=== PATIENT | male | born 1980 | race Caucasian/White ===

== ENCOUNTER 2022-04-22 18:16 | Emergency (ER) | payer MEDICAID, SELFPAY ==
[2022-04-22] VITALS (11 sets, daily range): BP systolic 113–129; BP diastolic 65–76; PULSE 50–63; RESP 16–22; TEMP 36.7; O2SAT 97–100; BMI 26.4
--- NOTE | 2022-04-22 18:38 | XRR_ITS ---
PROCEDURE INFORMATION: Exam: XR Left Tibia and Fibula Exam date and time: 04/22/2022 6:42 PM Age: 42 years old Clinical indication: Injury or trauma; Fall; Blunt trauma; Lower leg; Left; Additional info: Fall, injury TECHNIQUE: Imaging protocol: XR Left tibia and fibula. Views: 2 views. COMPARISON: No relevant prior studies available. FINDINGS: Bones/joints: There is a partially visible comminuted displaced fracture involving distal fibula which is incompletely assessed. Soft tissues: Unremarkable radiographically. XR/XR tibia fibula LT 2V 21912 IMPRESSION: 1. Left distal fibular fracture. Incomplete assessment. Correlate with dedicated ankle radiographs. 2. Proximal tibia and fibula are normal.
--- NOTE | 2022-04-22 18:38 | XRR_ITS ---
PROCEDURE INFORMATION: Exam: XR Left Foot Exam date and time: 04/22/2022 7:42 PM Age: 42 years old Clinical indication: Injury or trauma; Fall; Blunt trauma; Foot; Left; Additional info: Fall, injry TECHNIQUE: Imaging protocol: XR Left foot. Views: 3 or more views. COMPARISON: CR (LOW EXM, ) 04/22/2022 7:37 PM FINDINGS: Tubes, catheters and devices: Placement of splint. Bones/joints: No fractures in the foot. Ankle fractures including tibia and fibular fractures are redemonstrated but not well characterized on the views provided. Soft tissues: Diffuse soft tissue swelling. XR/XR foot LT min 3V* [id number] IMPRESSION: 1. Left foot is unremarkable. 2. Redemonstration of left tibia and fibular fractures of ankle.
--- NOTE | 2022-04-22 18:38 | XRR_ITS ---
PROCEDURE INFORMATION: Exam: XR Left Ankle Exam date and time: 04/22/2022 6:42 PM Age: 42 years old Clinical indication: Injury or trauma; Fall; Blunt trauma; Ankle; Left; Additional info: Deformity, fall TECHNIQUE: Imaging protocol: XR Left ankle. Views: 3 or more views. COMPARISON: No relevant prior studies available. FINDINGS: Bones/joints: Focally comminuted and displaced fracture fragments of the distal fibula diaphysis. Moderate valgus angulation deformity. Additionally, anterior apex angulation deformity. Severely displaced posterior malleolus fracture of the distal tibia. Disruption of tibia-fibular syndesmosis. Disruption of ankle mortise with anterior dislocation of the tibia relative to the talus. Ankle mortise also widened with medial tibial translation. Soft tissues: Diffuse ankle region swelling. XR/XR ankle LT min 3V* [id number] IMPRESSION: Fracture dislocation injuries of the left ankle.
--- NOTE | 2022-04-22 18:38 | ED_ITS ---
HPI - Extremity Injury (Lower) General: Chief Complaint: Extremity Injury, Lower Stated Complaint: Left leg twisted/broken Time Seen by Provider: 04/22/22 18:26 History of Present Illness: Mr. Freed is a 42-year-old gentleman without significant past medical history presents to the emergency department due to ankle injury. He was playing football and was tackled and his ankle got caught under from him. He immediately had 10 out of 10 pain and was unable to ambulate. Notes associated nausea likely secondary to pain. Denies prior orthopedic injury to this ankle. No other specific changes in health, exacerbating, or alleviating factors identified. Onset (ago): minute(s) Injury: Left: ankle Severity: severe Exacerbating factors: movement and palpation Associated symptoms: Reports inability to bear weight and swelling Review of Systems General: Reports: 10 or more systems reviewed and unremarkable except in HPI and below PFSH ED PFSH: Medical History Mandible fracture No significant past medical history Social History Smoking and tobacco status: never smoked Additional social history: History of chewing tobacco use Physical Exam Const: COMMON NORMALS: alert GENERAL APPEARANCE: cooperative, well develo ped and in distress (Pain) HENMT: COMMON NORMALS: normocephalic and atraumatic HEAD & SCALP: normocephalic and atraumatic Eye: COMMON NORMALS: conjunctivae normal CONJUNCTIVA: Yes conjunctivae normal SCLERA: sclerae normal Neck/C-Spine: COMMON NORMALS: supple GENERAL: Yes trachea midline Resp: COMMON NORMALS: normal respiratory effort EFFORT & INSPECTION: Yes able to speak in complete sentences Cardio: COMMON NORMALS: regular rate and regular rhythm RATE: regular rate RHYTHM: regular rhythm GI: COMMON NORMALS: Soft to palpation PALPATION: Yes Soft to palpation and No Tenderness to palpation present (GI) Extremity: NARRATIVE EXTREMITY EXAM: Obvious dislocation with deformity to left ankle with external rotation of foot compared to normal position. CMS intact. GENERAL: Yes normal exam except as noted and No edema Neuro: COMMON NORMALS: moves all extremities SENSORIUM/ORIENTATION: Yes alert and No Orientation impaired Psych: COMMON NORMALS: mental status grossly normal and Normal thought process present THOUGHT PROCESS: Normal thought process present Skin: NARRATIVE SKIN EXAM: Scattered abrasions, patient declines Tdap update Procedures Orthopedic Fracture Reduction Fracture #1: Time Out Performed: Yes Side: left Fracture Reduction Location: tibia and fibula Analgesia: procedural sedation Technique: direct manipulation and traction/counter-traction Post Reduction X-rays Demonstrate: acceptable reduction Post-reduction neuro exam: intact Post-reduction vascular exam: intact Splint Applied: Yes Patient Tolerated Procedure: well Orthopedic Joint Reduction Joint #1: Time Out Performed: Yes Side: left Joint Reduction Location: ankle Analgesia: procedural sedation Technique used: traction/counter-traction and direct manipulation Post-reduction neuro exam: intact Post-reduction vascular: intact Post Reduction X-Ray Obtained: Yes Post Reduction X-Ray Results: reduced Splint Applied: Yes Patient Tolerated Procedure: well Procedural Sedation Preparation: monitoring coordinator applied, pulse oximeter, supplemental O2 applied, suction/airway equipment at bedside and IV secured IV Propofol dose (mg): 130 Patient Tolerated Procedure: well Complications: none Course ED course: - Patient was seen and evaluated by me at bedside - Patient placed on cardiac monitors, IV access obtained - Initial evaluation notable for exam as above. - xrays personally interpreted by me - Analgesia given - Imaging notable for trimalleolar fracture with dislocation - Patient consented for procedural sedation and closed reduction. Tolerated procedure well and fully recovered with adequate analgesia prior to discharge. - Upon serial reexamination after treatment the patient was significantly improved - Based on patient history, evaluation, and testing as interpreted the most likely cause of the patient's condition is trimalleolar fracture with dislocation - The results of ED evaluation were discussed with the patient including prescriptions and/or symptomatic cares (if applicable) including appropriate and responsible use, followup plan, and return precautions. The patient verbalized understanding and felt safe for discharge. - Patient discharged in satisfactory condition. Note: Click bubbles or prepopulated bright in note writing are used for assistance with data collection and billing and are inherently more limited than narrative and other text portions of this note. Please use narrative for additional clinical history and defer to narrative/free test for any case of contradictory information. If information appears in only free text or click bubble it should be considered present or absent as reported. Please contact note sheet writer for clarifications of clinical information or contradictory information. MDM is a brief summary, contradictory or erroneous seeming information should be clarified and full note should be reviewed. Vital Signs: Vital signs: Vital Signs Temperature 98.0 F 04/22/22 21:09 Pulse Rate 63 04/22/22 21:09 Respiratory Rate 16 04/22/22 21:09 Blood Pressure 129/72 04/22/22 21:09 Pulse Oximetry 100 04/22/22 21:09 MDM - Extremity Injury (Lower) Medical Decision Making 42-year-old gentleman without significant past medical history with ankle injury after being tackled. Trimalleolar fracture with tibial talus dislocation successfully reduced and splinted. Satisfactory for outpatient follow-up and management. Medical Records I reviewed the patient's medical records. Lab Data I reviewed the patient's lab results. Radiology Impressions Foot X-Ray 04/22/22 18:38 IMPRESSION: 1. Left foot is unremarkable. 2. Redemonstration of left tibia and fibular fractures of ankle. Tibia/Fibula X-Ray 04/22/22 18:38 IMPRESSION: 1. Left distal fibular fracture. Incomplete assessment. Correlate with dedicated ankle radiographs. 2. Proximal tibia and fibula are normal. Ankle X-Ray 04/22/22 19:35 IMPRESSION: Significantly improved alignment of the left ankle fractures. Discharge Plan Discharge Patient Disposition: Home Clinical Impression: Ankle fracture, Ankle dislocation Condition: Stable Prescriptions: New ondansetron 4 mg tablet,disintegrating 4 mg PO TID PRN (Reason: nausea and vomiting) Qty: 15 0RF No Action ibuprofen [IBU] 800 mg tablet 800 mg PO Q8H 14 Days Qty: 42 0RF hydrocodone-acetaminophen 10-325 mg tablet 1 tab PO Q4H PRN (Reason: pain) 7 Days Qty: 28 0RF Discharge Orders: Discharge ED (Routine); Ordered 04/22/22 Ordered By: Mark Peoples Discharge Diet: Usual diet Discharge Activity: Limit activity as instructed Patient Instructions: Ankle Fracture (ED), Procedural Sedation (ED), Ankle Dislocation (ED), Opioid Safety Activity Restrictions/Additional Instructions: Thank you for visiting the emergency department. You were seen and evaluated for ankle injury. You have a likely trimalleolar fracture and dislocation which was reduced at bedside under procedural sedation. You will require follow-up with orthopedic surgery. I discussed your injury with Dr. Pope. I will message case management for follow-up however please call tomorrow afternoon if you do not hear anything in the morning. The phone number is: [phone] or the main number is [phone] and ask for orthopedics. Please use Tylenol and ibuprofen scheduled for pain. Keep the extremity elevated. Please take [id number] stool softener with opioids. Do not combine with other sedating medications. Please return to the emergency department for any changes in sensation, uncontrolled pain, color change of toes, or anything else that you are concerned about and feel needs emergency department evaluation. Coding Level of Care Code ED Print Line Inspector for Evelyne Wetzel Exam Comprehensive
[2022-04-22] MEDS: fentaNYL 50 mcg/mL INJ 2mL IVP ×2 (18:55→19:00)
[2022-04-22] MEDS: ondansetron 2 mg/ML SDV 2 mL 4 MG IVP ×2 (18:55→20:36)
[2022-04-22] MEDS: propofol 10 mg/mL SDV 20 mL IVP (19:23)
[2022-04-22] MEDS: sodium chloride 0.9% 1,000 ML 75 ML IV (19:23)
--- NOTE | 2022-04-22 19:35 | XRR_ITS ---
PROCEDURE INFORMATION: Exam: XR Left Ankle Exam date and time: 04/22/2022 7:37 PM Age: 42 years old Clinical indication: Other: Post reduction TECHNIQUE: Imaging protocol: XR Left ankle. Views: 3 or more views. COMPARISON: CR (LOW EXM, ) 04/22/2022 6:42 PM FINDINGS: Tubes, catheters and devices: Placement of splint. Bones/joints: Relocation of the ankle mortise. Realignment of distal tibia fractures including medial malleolus and likely posterior malleolus fractures. Decreased angulation deformity of the displaced fibula diaphyseal fracture. Soft tissues: Diffuse soft tissue swelling. XR/XR ankle LT min 3V* [id number] IMPRESSION: Significantly improved alignment of the left ankle fractures.
[2022-04-22] MEDS: HYDROmorphone 1 mg/mL INJ 1 mL 0.5 MG IVP (19:45)
--- NOTE | 2022-04-22 19:47 | PC.NURSE ---
Timeout done Per Dr. Peoples and Myself @ 1921. Procedure started @ 1922 . 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 Patient given 90 mg Propofol IV push per Dr. Peoples. Moderate sedation obtained. Patients Ankle set and splinted. Patient returned to [facility] @ 1935. Patient in no obiovus distress.
[2022-04-22] MEDS: methocarbamol 750 mg Tablet PO (20:32)
[2022-04-22] MEDS: acetaminophen 500 mg Tablet 1000 MG PO (20:32)
[2022-04-22] MEDS: oxyCODONE 5 mg IR Tab/Cap PO (20:33)
[2022-04-22] MEDS: oxyCODONE 5 mg IR Tab/Cap 10 MG PO (20:34)
[2022-04-22] MEDS: ondansetron 4 MG Tablet 8 MG PO (20:35)
--- NOTE | 2022-04-26 06:08 | DCPLANNER ---
Addendum entered by Allison Mcarthur 04/29/22 09:27: Patient had a follow up appointment scheduled for 04.25.[address] Oliva at ortho - patient did attend appointment. Original Note: shift nurse manager had message to schedule a follow up appointment for patient with ortho. shift nurse manager sent patients information to the front office staff at ortho. Patients information will be printed and reviewed. Clinic will call patient with appointment information.
== END 2022-04-22 21:13 | disposition home or self-care (01) ==
PROVIDERS: Emergency Provider Emergency Medicine
DX: S82.852A Displaced trimalleolar fracture of left lower leg, initial encounter for closed fracture (principal); S93.05XA Dislocation of left ankle joint, initial encounter; W03.XXXA Other fall on same level due to collision with another person, initial encounter; Y93.61 Activity, american tackle football
CPT/HCPCS: 27818; 27840; 73590; 73610; 73630; 96374; 96375; 96376; 99152; 99284; E0114; J1170; J2405; J2704; J3010; J7030; Q0162

== ENCOUNTER 2022-05-02 12:19 | Outpatient (CLI) | payer MEDICAID, SELFPAY ==
--- NOTE | 2022-05-02 12:00 | CT_ITS ---
WS: [id number] NONCONTRAST CT LEFT ANKLE TECHNIQUE: Noncontrast CT LEFT ankle with coronal and sagittal reformatted images. CLINICAL INFORMATION: Left Ankle Fracture COMPARISON: Prior radiographs April 22, 2022 DLP: 370.[address] scans at [facility] use at least one of these dose optimization techniques: automated e xposure control; mA and/or kV adjustment per patient size (includes targeted exams where dose is matc hed to clinical indication); or iterative reconstruction. FINDINGS: Previously described recently reduced fractures of the distal one third fibular diaphysis with fractu re dislocation of the ankle mortise which has been reduced. Disruption and widening of the syndesmosi s. Distal one third fibula diaphyseal fracture slightly displaced with butterfly fragment. Comminuted fr actures involving the posterior and medial malleolus. Minimal widening of the posterior malleolar fra gment. Lateral malleolus appears intact. Anterior tibial plafond appears intact. Tibiotalar joint has been reduced. Talar dome appears grossly intact. A few tiny fracture fragments along the lateral anterior talus of unknown origin. Small fracture frag ments likely originate from the adjacent anterolateral tibial plafond. Subtle irregularity along the anterolateral tibial plafond. Additional miniscule fracture fragments along the anteromedial talus li moriah due to impaction from dislocation Normal calcaneus. Normal talonavicular articulation. Cuneiforms appear normal. Normal cuboid. Expecte d soft tissue edema involving the lower leg and ankle soft tissues. CT/CT ankle LT wo con* [id number] IMPRESSION: 1. Recent ankle mortise dislocation with reduction. Comminuted fracture of the distal 3rd fibula shaft with butterfly fragment described above. 2. Comminuted fractures involving the posterior and medial malleolus. Lateral malleolus appears intact. 3. Ankle mortise appears relatively symmetric. 4. Small comminuted fracture fragments along the anterior lateral neck of the talus with adjacent irregularity involving the anterolateral tibial plafond. 5. Additional tiny miniscule fracture fragments along the neck of the talus wi th minimal irregularity of the adjacent talus likely due to impaction from disl ocation
== END 2022-05-02 12:20 | disposition home or self-care (01) ==
LOC: RAD 12:20
PROVIDERS: Visit Provider Podiatrist Foot & Ankle Surgery
DX: S82.852D Displaced trimalleolar fracture of left lower leg, subsequent encounter for closed fracture with routine healing (principal); T14.8XXD Other injury of unspecified body region, subsequent encounter
CPT/HCPCS: 73700

== ENCOUNTER 2022-05-04 05:55 | Day surgery (SDC) | payer MEDICAID, SELFPAY ==
[2022-05-03 09:06] VITALS: BMI 26.7
[2022-05-04] VITALS (16 sets, daily range): BP systolic 133–171; BP diastolic 67–92; PULSE 56–82; RESP 14–18; TEMP 36.5–37; O2SAT 92–99
--- NOTE | 2022-05-04 | SCC_ITS ---
Procedure done: Open reduction internal fixation left trimalleolar fracture. CPT code 94981 21 seconds of fluoroscopic guidance, for a cumulative dose of 0.6 mGy, was provided to Dr. Oliva by the radiology department. C-arm images of the LEFT ankle were saved for the patient's permanent record. [facility]
[2022-05-04] MEDS: scopolamine 1.5 Patch 1 PATCH TRANSDERMA (06:31)
[2022-05-04] MEDS: sodium chloride 0.9% 1,000 ML 30 ML IV (06:31)
--- NOTE | 2022-05-04 06:32 | W.PM.OPSUD ---
Surgery/Procedure H&P Update DATE OF PROCEDURE: May 04, 2022 DATE H&P PERFORMED: 04/25/22 CHANGES TO PREVIOUS DOCUMENTATION: None PREOP DIAGNOSIS: Left trimalleolar fracture PLANNED PROCEDURE: Operation Date: 05/04/22 07:00 Proposed Procedures p open reductiion internal fixation left trimalleolar fracture 25530,S82.852A(Left) - Bertrand Oliva DPM
[2022-05-04] MEDS: lidocaine 2% INJ 20 mL 15 ML INJECTION (07:28)
--- NOTE | 2022-05-04 09:20 | PM.OP ---
Operative Report Date of procedure: May 04, 2022 Pre-op diagnosis: Left trimalleolar fracture Post-op diagnosis: Same Post-op findings: None Procedure done: Open reduction internal fixation left trimalleolar fracture. CPT code 40477 Implants: [employer] medial hook plate with 3.5 millimeter screws. Shama one third tubular plate at fibula with 3.5 millimeter screws locking and nonlocking, 22-gauge cerclage wire, 2-0 Vicryl, 3-0 Vicryl, skin jaylon. Specimens removed/disposition: None Pathology: None Surgeon: Bertrand Oliva D.P.M. [employer] Superintendent: Deb Estimated blood loss: 10 114 IV fluids: None Urine output: None Complications: None Findings: Comminuted fracture Onofre Angulo C left, comminuted fracture left medial malleolus. Near anatomic reduction of ankle mortise and fractures appreciated. Brief History: 42-year-old male presents with dislocated trimalleolar fracture left ankle, injured while playing tackle football date of injury 04/22/2022. Presented to the emergency department following the injury and underwent closed reduction and splinting utilizing crutches.? He was prescribed Percocet, this is causing some itching and nausea.? Will switch to hydrocodone encouraged him to take this with food, he is also prescribed Zofran.? Reviewed x-ray findings shows a SER 4 fracture pattern with complete dislocation of the talus out of the mortise.? Underwent closed reduction.? Improved alignment post reduction.? Recommended open reduction internal fixation of right trimalleolar fracture.? CT scan performed shows trimalleolar fracture SER 4. Soft tissue envelope inspected and noted to be appropriate for surgical intervention, no fracture blisters and edema is under control, no lacerations, mild ecchymosis both medially and laterally at the left ankle. Risks include pain, bleeding, numbness, infection, deep vein thrombosis, pulmonary embolism, heart attack, stroke, , posttraumatic arthritis of the left ankle. Hardware failure, delayed union, malunion, nonunion, chronic swelling and chronic numbness, need for physical therapy and long-term pain at the left ankle. Also risk for decreased range of motion, weakness and reoccurring injury. No guarantees written, expressed or implied. Patient wishes to proceed. Informed consent signed by patient and myself. Patient n.p.o. since midnight. Procedure: Under mild sedation the patient was brought to the operating room and placed on the operating table in supine position. A timeout was performed. Anesthesia was then administered by the anesthesia service. Local anesthesia injected by myself consisting of 30 cc of one-to-one mixture 1% lidocaine and 0.25% Marcaine plain in a left ankle block fashion. Well-padded pneumatic tourniquet applied to the left thigh. Left lower extremity was then scrubbed, prepped and draped utilizing normal aseptic technique. Left lower extremity was exanguinated with an Esmarch bandage and a tourniquet inflated to 300 mmHg. Attention was directed to the left lateral malleolus where bony landmarks were palpated. A linear longitudinal incision was made with a #15 blade directly over the left distal fibula. Dissection was carried down through subcutaneous tissue utilizing sharp and blunt technique. Care was taken to retract and preserve neurovascular and tendinous structures. All bleeders were ligated and cauterized as necessary. Fibular fracture was identified and evacuated of hematoma utilizing curettage and saline flush. There was comminution appreciated the fracture, the fibula was derotated to anatomic position and pulled out to length followed by fixation utilizing standard AO technique and a Shama one third tubular plate with a combination of locking and nonlocking screws with 3 screws distal to the fracture and 4 screws proximal and comminuted fragment further fixated utilizing 22-gauge cerclage wire with a wire twisted and tucked into an empty screw hole within the plate to maintain a low-profile. Lateral incision was flushed with copious amounts of sterile saline solution followed by closure in a layered fashion utilizing 2-0 Vicryl at periosteum, 3-0 Vicryl subcutaneous tissue and skin jaylon. Attention was then directed to the medial malleolus where a curvilinear incision was made through skin with a #15 blade with dissection carried down through subcutaneous tissue to the layer of periosteum utilizing accommodation of blunt and sharp technique. Care was taken to retract and preserve neurovascular and tendinous structures. All bleeders were ligated and cauterized as necessary. Periosteal incision was made and comminution at the medial malleolar fracture was appreciated. This was evacuated of hematoma utilizing curettage and saline flush, fractures were reduced in all 3 planes and fixated utilizing a [employer] medial hook plate with 3.5 mm locking and nonlocking screws with excellent bony apposition and compression noted. Intraoperative fluoroscopy confirmed congruent ankle mortise and anatomic reduced medial malleolar fracture and fibular fracture in all 3 planes with hardware not violating the ankle mortise. Posterior malleolus fracture involves less than 20% of the ankle joint and head reduced with ligamentotaxis. Medial incision was flushed with copious months of sterile saline solution and closed with 2-0 Vicryl at periosteum, 3-0 Vicryl subcutaneous tissue and skin jaylon. Incisions were dressed with Adaptic, sterile 4 x 4, Kerlix and Jose G wrap followed by a cam boot application and tourniquet deflated with a prompt hyperemic response noted to the distal digits of the left foot. Patient tolerated the procedure and anesthesia well and was transferred to the PACU with vital signs stable and vascular status intact. Following a period of postoperative monitoring he will be discharged home is to remain strict nonweightbearing to left lower extremity and elevate left foot while resting. Will be following up in podiatry clinic next week for his first dressing change. Was provided my cell phone number will contact with any postoperative questions or concerns.
[2022-05-04] MEDS: meperidine 50 mg/mL INJ 12.5 MG IVP (09:32)
[2022-05-04] MEDS: fentaNYL 50 mcg/mL INJ 2mL IVP (09:40)
[2022-05-04] MEDS: HYDROcodone-acetaminophen 10-325 mg Tablet 1 TAB PO (10:18)
--- NOTE | 2022-05-04 10:31 | ANE.PACU2 ---
Inpatient post-anesthesia follow up: Airway intact: Yes Vital signs: Temperature 98.6 F Pulse Rate 63 Respiratory Rate 14 Blood Pressure 134/77 Pulse Oximetry 96 Oxygen Delivery Me thod Room Air Oxygen Flow Rate Fraction of Inspir ed Oxygen Hydration adequate: Yes Nausea and vomiting: No Pain level: 1 Mental status: Baseline
[2022-05-04] MEDS: HYDROmorphone 1 mg/mL INJ 1 mL 0.5 MG IVP (10:36)
--- NOTE | 2022-05-04 10:49 | XRR_ITS ---
PROCEDURE INFORMATION: Exam: XR Left Ankle Exam date and time: 05/04/2022 10:54 AM Age: 42 years old Clinical indication: Device placement; Other: Post operative; Prior surgery; Surgery date: Post-operative (0-2 days); Additional info: Post surgery TECHNIQUE: Imaging protocol: XR Left ankle. Views: 3 or more views. COMPARISON: CR (LOW EXM, ) 04/22/2022 7:37 PM FINDINGS: Bones/joints: Intact internal fixation of distal tibial and fibular fractures. Hardware is intact. There is near anatomic alignment of the distal fibular diaphyseal and medial malleolar fractures. Ankle mortise alignment is normal. There is a nondisplaced posterior malleolar fracture. Soft tissues: Skin jaylon and mild diffuse soft tissue edema noted. XR/XR ankle LT min 3V* [id number] IMPRESSION: Expected postoperative appearance of the ankle. No apparent surgical complications. Near anatomic alignment of the fracture sites. Satisfactory ankle mortise alignment.
[2022-05-04] MEDS: acetaminophen 1,000 MG/100 ML PIGGYBACK 400 MG IV (10:55)
--- NOTE | 2022-05-04 11:01 | P.ANESASSM_ITS ---
Pre-Anesthetic Assessment Height/Weight: Height 1.8 m Weight 87.09 kg Temp Pulse Resp BP Pulse Ox 98.6 F 63 18 134/77 96 05/04/22 10:06 05/04/22 10:23 05/04/22 10:36 05/04/22 10:23 05/04/22 10:23 Preop Diagnosis: Left trimalleolar fracture Operation Date: 05/04/22 07:00 Proposed Procedures p open reductiion internal fixation left trimalleolar fracture [id number](Left) - Bertrand Oliva DPM Familial anesthetic complications: None, PONV Was Beta Светлана taken within 24 hours: N/A Was Clonidine taken within 24 hours: N/A Last intake: Intake Last Liquid Date 05/03/22 Last Liquid Time 23:30 Last Solid Date 05/03/22 Last Solid Time 19:00 Social Tobacco (chews) and No alcohol Airway Submandibular: within normal limits Cervical ROM: within normal limits Mallampati: Class II Dentition: full History/ROS No significant history except as noted Anesthetic Plan ASA status: 1 Anesthesia: General Medications/Allergies Home Medications Medication Instructions Recorded Confirmed Last Taken Type ondansetron 4 mg disintegrating 4 mg PO TID PRN #15 tab 04/22/22 05/03/22 05/03/22 Rx tablet ibuprofen 800 mg tablet (IBU) 800 mg PO Q8H 14 Days #42 tab 04/25/22 05/03/22 05/03/22 Rx hydrocodone 10 mg-acetaminophen 1 tab PO Q4H PRN 7 Days #28 tab 05/02/22 05/03/22 05/03/22 Rx 325 mg tablet Allergies Allergy/AdvReac Type Severity Reaction Status Date / Time No Known Allergies Allergy Verified 05/04/22 06:19 Current Medications Generic Name Dose Route Start Last Admin Trade Name Freq PRN Reason Stop Dose Admin Fentanyl 50 mcg 05/04/22 06:08 05/04/22 09:40 Fentanyl 50 Mcg/Ml Inj 2ml IVP 50 mcg Q10M PRN Administration Preop Pain Sodium Chloride 1,000 mls @ 30 mls/hr 05/04/22 06:15 05/04/22 06:31 Sodium Chloride 0.9% IV 05/05/22 06:14 30 mls/hr .Q24H MARLO Administration Acetaminophen 1,000 mg in 100 mls @ 400 mls/hr 05/04/22 10:49 05/04/22 10:55 Acetaminophen IV 05/04/22 11:03 400 mls/hr ONCE ONE Administration Meperidine HCl 12.5 mg 05/04/22 06:08 05/04/22 09:32 Meperidine 50 Mg/Ml Inj IVP 05/05/22 06:08 12.5 mg Q5M PRN Administration Shivering PACU Phase I [facility] Anesthesia Medical History Mandible fracture No significant past medical history Social History Smoking and tobacco status: never smoked Additional social history: History of chewing tobacco use Data Anesthesia Cardiac Studies: No Data to Display
--- NOTE | 2022-05-04 11:02 | ANE.PACU2 ---
Inpatient post-anesthesia follow up: Airway intact: Yes Vital signs: Temperature 98.6 F Pulse Rate 63 Respiratory Rate 18 Blood Pressure 134/77 Pulse Oximetry 96 Oxygen Delivery Me thod Room Air Oxygen Flow Rate Fraction of Inspir ed Oxygen Hydration adequate: Yes Nausea and vomiting: No Pain level: 5 Mental status: Baseline
[2022-05-04] MEDS: cyclobenzaprine 10 mg Tablet PO (11:24)
--- NOTE | 2022-05-04 11:38 | PC.NURSE ---
[facility]
== END 2022-05-04 12:15 | disposition home or self-care (01) ==
PROVIDERS: Visit Provider Podiatrist Foot & Ankle Surgery
PROC: (CPT 27822; principal; 2022-05-04 07:00)
DX: S82.852A Displaced trimalleolar fracture of left lower leg, initial encounter for closed fracture (principal); X58.XXXA Exposure to other specified factors, initial encounter; Y93.61 Activity, american tackle football
CPT/HCPCS: 27822; 73610; 76000; C1713 ×2; J1100; J1170; J1200; J1885; J2175; J2250; J2370; J2405; J2704; J3010; J3490; J7030

== ENCOUNTER → 2022-05-24 15:18 | Outpatient (BNVA) | payer MEDICAID, SELFPAY | PROVIDERS: Visit Provider Podiatrist Foot & Ankle Surgery | DX: Z98.890 Other specified postprocedural states (principal) | CPT/HCPCS: 73610 ==

== ENCOUNTER → 2022-06-14 13:03 | Outpatient (BNVA) | payer MEDICAID, SELFPAY | PROVIDERS: Visit Provider Podiatrist Foot & Ankle Surgery | DX: Z47.89 Encounter for other orthopedic aftercare (principal); S82.62XD Displaced fracture of lateral malleolus of left fibula, subsequent encounter for closed fracture with routine healing; X58.XXXD Exposure to other specified factors, subsequent encounter | CPT/HCPCS: 73610 ==

== ENCOUNTER → 2022-06-28 14:08 | Outpatient (BNVA) | payer MEDICAID, SELFPAY | PROVIDERS: Visit Provider Podiatrist Foot & Ankle Surgery | DX: S82.852A Displaced trimalleolar fracture of left lower leg, initial encounter for closed fracture (principal); Z98.890 Other specified postprocedural states; X58.XXXA Exposure to other specified factors, initial encounter | CPT/HCPCS: 73610 ==

== ENCOUNTER → 2022-07-19 15:47 | Outpatient (BNVA) | payer MEDICAID, SELFPAY | PROVIDERS: Visit Provider Podiatrist Foot & Ankle Surgery | DX: Z47.89 Encounter for other orthopedic aftercare (principal) | CPT/HCPCS: 73610 ==

== ENCOUNTER → 2022-08-09 14:12 | Outpatient (BNVA) | payer BC, MEDICAID, SELFPAY | PROVIDERS: Visit Provider Podiatrist Foot & Ankle Surgery | DX: Y93.61 Activity, american tackle football (principal); M25.571 Pain in right ankle and joints of right foot; S82.852A Displaced trimalleolar fracture of left lower leg, initial encounter for closed fracture | CPT/HCPCS: 73610 ==